=== PATIENT | male | born 1970 | race Caucasian/White ===

== ENCOUNTER 2019-01-06 14:55 | Outpatient (CLI) | payer BC ==
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
== END 2019-01-06 14:56 | disposition home or self-care (01) ==
LOC: BICRAD 14:55
DX: M25.562 Pain in left knee (principal); S81.002A Unspecified open wound, left knee, initial encounter; Z98.890 Other specified postprocedural states

== ENCOUNTER 2021-11-22 08:57 | Outpatient (CLI) | payer BC ==
[2021-11-22] MEDS ORDERED: Iopamidol 370 76% 100 ML VIAL ONE (13:51)
== END 2021-11-22 08:58 | disposition home or self-care (01) ==
LOC: CT 08:57
PROVIDERS: ATTEND Thoracic Surgery (Cardiothoracic Vascular Surgery)
DX: S75.022A Major laceration of femoral artery, left leg, initial encounter (principal)
CPT/HCPCS: 75635; Q9967

== ENCOUNTER 2021-12-05 16:30 | Outpatient (CLI) | payer BC ==
[2021-12-05 18:17] LABS: Hemoglobin 16.1 g/dL (13.5-17.5); Mean Corpuscular HGB CONC 35.5 g/dL (32.0-36.0); Mean Corpuscular Hemoglobin 34.4 pg (27.0-33.0); Mean Platelet Volume 9.6 fl (7.4-10.4); Platelet Count 211 10x3/uL (150-450); RBC Distribution Width 12.1 % (11.5-14.5); Red Blood Cell (RBC) Count 4.68 10x6/uL (4.32-5.72); White Blood Cell (WBC) Count 5.8 10x3/uL (3.5-10.5)
[2021-12-05 18:45] LABS: Anion Gap 15 mmol/L (10-20); BUN (Urea Nitrogen) 13 mg/dL (8.4-25.7); Calc. Creatinine Clearance 0 mL/min (70-130); Calcium 9.9 mg/dL (7.8-10.44); Carbon Dioxide 25 mmol/L (22-29); Chloride 103 mmol/L (98-107); Estimated GFR 106; Glucose 91 mg/dL (70-105); Potassium 4.2 mmol/L (3.5-5.1); Sodium 139 mmol/L (136-145)
== END 2021-12-05 16:31 | disposition home or self-care (01) ==
LOC: LABBT 16:30
PROVIDERS: ATTEND Thoracic Surgery (Cardiothoracic Vascular Surgery)
DX: Z01.818 Encounter for other preprocedural examination (principal); S80.852A Superficial foreign body, left lower leg, initial encounter; N28.9 Disorder of kidney and ureter, unspecified
CPT/HCPCS: 80048; 85027; 93005; 93010

== ENCOUNTER 2021-12-06 07:01 | Day surgery (SDC) | payer BC ==
[2021-12-05 14:33] VITALS: BMI 23.9
[2021-12-06] MEDS ORDERED: Heparin 5,000 UNITS/ML VIAL ONE (07:12)
[2021-12-06] MEDS ORDERED: Protamine Sulfate 50 MG/5 ML VIAL ONE (07:12)
[2021-12-06] MEDS ORDERED: Sodium Chloride 0.9% 100 ML ONE (08:40)
[2021-12-06] MEDS ORDERED: CEFAZOLIN 2 GM VIAL ONE (08:40)
[2021-12-06] MEDS ORDERED: HYDROmorphone 0.5 MG/0.5 ML SYRINGE ONE (09:01)
[2021-12-06] MEDS ORDERED: fentaNYL Citrate/PF 100 MCG/2 ML SYRINGE ONE (09:01)
[2021-12-06] MEDS ORDERED: Dexamethasone 20 MG/5 ML VIAL ONE (09:51)
[2021-12-06] MEDS ORDERED: Lidocaine 1% PF 5 ML VIAL ONE (09:51)
[2021-12-06] MEDS ORDERED: Rocuronium Bromide 10 MG/ML (10ML VIAL) ONE (09:51)
[2021-12-06] MEDS ORDERED: Ketorolac Tromethamine 30 MG/ML VIAL ONE (09:51)
[2021-12-06] MEDS ORDERED: PROPOFOL 200 MG/20 ML VIAL ONE (09:51)
[2021-12-06] MEDS ORDERED: Ondansetron PF 4 MG/2 ML Vial ONE (09:51)
== END 2021-12-06 12:25 | disposition home or self-care (01) ==
LOC: SDC 07:01
PROVIDERS: ATTEND Thoracic Surgery (Cardiothoracic Vascular Surgery)
PROC: 0JCM0ZZ Extirpation of Matter from Left Upper Leg Subcutaneous Tissue and Fascia, Open Approach (ICD-10-PCS; principal; 2021-12-06)
DX: S80.252A Superficial foreign body, left knee, initial encounter (principal); I10 Essential (primary) hypertension; E78.5 Hyperlipidemia, unspecified; F17.210 Nicotine dependence, cigarettes, uncomplicated; Z79.82 Long term (current) use of aspirin; Z79.899 Other long term (current) drug therapy; Z88.1 Allergy status to other antibiotic agents; Z88.8 Allergy status to other drugs, medicaments and biological substances; Z95.820 Peripheral vascular angioplasty status with implants and grafts; W32.0XXA Accidental handgun discharge, initial encounter
CPT/HCPCS: C1776; J0690; J1100; J1170; J1644; J1885; J2405; J2704; J2720; J3490

== ENCOUNTER 2022-04-23 11:47 | Outpatient (CLI) | payer BC ==
[2022-04-23 14:03] LABS: Anion Gap 16 mmol/L (10-20); BUN (Urea Nitrogen) 8 mg/dL (8.4-25.7); Calc. Creatinine Clearance 0 mL/min (70-130); Calcium 10.3 mg/dL (7.8-10.44); Carbon Dioxide 23 mmol/L (22-29); Chloride 103 mmol/L (98-107); Estimated GFR 107; Glucose 104 mg/dL (70-105); Potassium 4.5 mmol/L (3.5-5.1); Sodium 137 mmol/L (136-145)
== END 2022-04-23 11:48 | disposition home or self-care (01) ==
LOC: LABBT 11:47
PROVIDERS: ATTEND Orthopaedic Surgery Hand Surgery
DX: Z01.818 Encounter for other preprocedural examination (principal); M79.5 Residual foreign body in soft tissue; M77.9 Enthesopathy, unspecified
CPT/HCPCS: 80048; 93005; 93010

== ENCOUNTER 2022-08-08 07:39 | Outpatient (CLI) | payer BC ==
[2022-08-08] MEDS ORDERED: Iopamidol 370 76% 100 ML VIAL ONE (14:10)
== END 2022-08-08 07:40 | disposition home or self-care (01) ==
LOC: BICCT 07:39
PROVIDERS: ATTEND Thoracic Surgery (Cardiothoracic Vascular Surgery)
DX: S75.022A Major laceration of femoral artery, left leg, initial encounter (principal); I77.1 Stricture of artery; I70.8 Atherosclerosis of other arteries
CPT/HCPCS: 75635; 82565; Q9967

== ENCOUNTER 2022-08-25 14:00 | Inpatient (IN) | payer BC ==
[2022-08-25 14:44] VITALS: BMI 24.3
[2022-08-26] MEDS ORDERED: Protamine Sulfate 50 MG/5 ML VIAL ONE (06:35)
[2022-08-26] MEDS ORDERED: Heparin 5,000 UNITS/ML VIAL ONE (06:35)
[2022-08-26] MEDS ORDERED: Midazolam HCl 2 mg/2 ml Vial ONE (06:45)
[2022-08-26] MEDS ORDERED: Fentanyl 250 MCG/5 ML VIAL ONE (06:45)
[2022-08-26] MEDS ORDERED: SUGAMMADEX SODIUM 200 MG/2 ML VIAL ONE (06:46)
[2022-08-26] MEDS ORDERED: Phenylephrine 10 MG/ML VIAL ONE (06:47)
[2022-08-26] MEDS ORDERED: Sodium Chloride 0.9% 100 ML ONE (07:13)
[2022-08-26] MEDS ORDERED: CEFAZOLIN 2 GM VIAL ONE (07:13)
[2022-08-26] MEDS ORDERED: HYDROmorphone 0.5 MG/0.5 ML SYRINGE ONE ×5 (07:16→15:31)
[2022-08-26] MEDS ORDERED: KETAMINE 100 MG/ML (5ML VIAL) ONE (07:16)
[2022-08-26] MEDS ORDERED: HYDROmorphone 2 MG/ML VIAL ONE (07:16)
[2022-08-26] MEDS ORDERED: Vecuronium 10 MG VIAL ONE (07:24)
[2022-08-26] MEDS ORDERED: PROPOFOL 200 MG/20 ML VIAL ONE (07:24)
[2022-08-26] MEDS ORDERED: ePHEDrine Sulfate 50 MG/10 ML VIAL ONE (07:24)
[2022-08-26] MEDS ORDERED: Rocuronium Bromide 10 MG/ML (10ML VIAL) ONE (07:24)
[2022-08-26] MEDS ORDERED: Ondansetron PF 4 MG/2 ML Vial ONE (07:24)
[2022-08-26] MEDS ORDERED: Dexamethasone 20 MG/5 ML VIAL ONE (07:24)
[2022-08-26] MEDS ORDERED: Ipratropium/Albuterol 3 ML NEB NEB PRN (11:55)
[2022-08-26] MEDS ORDERED: Acetaminophen 325 MG TAB PO PRN (11:55)
[2022-08-26] MEDS ORDERED: traMADol HCl 50 MG TAB PO PRN (11:55)
[2022-08-26] MEDS ORDERED: Ondansetron PF 4 MG/2 ML Vial IVP PRN (11:55)
[2022-08-26] MEDS ORDERED: Sodium Chloride 0.9% 1,000 ML IV SCH (12:00)
[2022-08-26] MEDS: Ketorolac Tromethamine 30 MG/ML VIAL IVP SCH ×3 (16:34→23:57)
[2022-08-26] MEDS: traMADol HCl 50 MG TAB PO PRN (20:25)
[2022-08-26] MEDS: Pregabalin 75 MG CAP PO SCH (20:26)
[2022-08-26] MEDS: Atorvastatin Calcium 10 MG TAB PO SCH (20:27)
[2022-08-26] MEDS: CEFAZOLIN 2 GM in Sodium Chloride 0.9% 100 ML IVPB SCH (20:27)
[2022-08-27] MEDS: CEFAZOLIN 2 GM in Sodium Chloride 0.9% 100 ML IVPB SCH ×2 (03:46→11:30)
[2022-08-27] MEDS: Ketorolac Tromethamine 30 MG/ML VIAL IVP SCH ×3 (05:35→17:55)
[2022-08-27] MEDS ORDERED: NIFEdipine XL 60 MG TAB PO SCH (09:00)
[2022-08-27] MEDS: Bupropion 150 MG SR TAB PO SCH (09:07)
[2022-08-27] MEDS: Polyethylene Glycol 3350 17 GM Packet PO SCH (09:08)
[2022-08-27] MEDS: Clopidogrel Bisulfate 75 MG TAB PO SCH (09:08)
[2022-08-27] MEDS: Aspirin Chewable 81 MG TAB PO SCH (09:08)
[2022-08-27] MEDS: Losartan 25 MG TAB PO SCH (09:08)
[2022-08-27] MEDS: traMADol HCl 50 MG TAB PO PRN (21:48)
[2022-08-27] MEDS: Atorvastatin Calcium 10 MG TAB PO SCH (21:48)
[2022-08-27] MEDS: Pregabalin 75 MG CAP PO SCH (21:48)
[2022-08-28] MEDS: Ketorolac Tromethamine 30 MG/ML VIAL IVP SCH ×3 (00:16→10:55)
[2022-08-28] MEDS: Bupropion 150 MG SR TAB PO SCH (08:24)
[2022-08-28] MEDS: Clopidogrel Bisulfate 75 MG TAB PO SCH (08:25)
[2022-08-28] MEDS: Losartan 25 MG TAB PO SCH (08:25)
[2022-08-28] MEDS: Aspirin Chewable 81 MG TAB PO SCH (08:25)
[2022-08-28] MEDS: Polyethylene Glycol 3350 17 GM Packet PO SCH (08:25)
[2022-08-28 08:39] VITALS: BP 142/83; TEMP 98.7
== END 2022-08-28 12:15 | disposition home or self-care (01) | DRG 254 ==
LOC: SURG A 08-26 06:04
PROVIDERS: ADMIT Thoracic Surgery (Cardiothoracic Vascular Surgery); ATTEND Thoracic Surgery (Cardiothoracic Vascular Surgery)
PROC: 041L09L Bypass Left Femoral Artery to Popliteal Artery with Autologous Venous Tissue, Open Approach (ICD-10-PCS; principal; 2022-08-26)
PROC: 041 Lower Arteries, Bypass (ICD-10-PCS; 2022-08-26)
PROC: 06BQ0ZZ Excision of Left Saphenous Vein, Open Approach (ICD-10-PCS; 2022-08-26)
PROC: 06BP0ZZ Excision of Right Saphenous Vein, Open Approach (ICD-10-PCS; 2022-08-26)
DX: I70.222 Atherosclerosis of native arteries of extremities with rest pain, left leg (principal); F17.210 Nicotine dependence, cigarettes, uncomplicated; F41.9 Anxiety disorder, unspecified; I10 Essential (primary) hypertension; E78.5 Hyperlipidemia, unspecified; E55.9 Vitamin D deficiency, unspecified; Z71.6 Tobacco abuse counseling; Z79.899 Other long term (current) drug therapy; Z79.82 Long term (current) use of aspirin; Z88.1 Allergy status to other antibiotic agents; Z88.8 Allergy status to other drugs, medicaments and biological substances
CPT/HCPCS: 80048; 85027; 86850; 86900; 86901; 93005; 93010; C1776; J1100; J1170; J1644; J1885; J2250; J2370; J2405; J2704; J2720; J3010; J3490

== ENCOUNTER 2022-08-25 14:03 | Outpatient (CLI) | payer BC ==
[2022-08-25 14:43] LABS: Hemoglobin 16.2 g/dL (13.5-17.5); Mean Corpuscular HGB CONC 35.1 g/dL (32.0-36.0); Mean Corpuscular Hemoglobin 33.2 pg (27.0-33.0); Mean Corpuscular Volume 94.7 fl (81.2-95.1); Mean Platelet Volume 8.6 fl (7.4-10.4); Platelet Count 229 10x3/uL (150-450); RBC Distribution Width 12.5 % (11.5-14.5); Red Blood Cell (RBC) Count 4.88 10x6/uL (4.32-5.72); White Blood Cell (WBC) Count 7.2 10x3/uL (3.5-10.5)
[2022-08-25 15:08] LABS: Anion Gap 16 mmol/L (10-20); BUN (Urea Nitrogen) 13 mg/dL (8.4-25.7); Calc. Creatinine Clearance 0 mL/min (70-130); Calcium 9.9 mg/dL (7.8-10.44); Carbon Dioxide 23 mmol/L (22-29); Chloride 102 mmol/L (98-107); Estimated GFR 83; Glucose 132 mg/dL (70-105); Potassium 4.1 mmol/L (3.5-5.1); Sodium 137 mmol/L (136-145)
== END 2022-08-25 14:04 | disposition home or self-care (01) ==
LOC: LABBT 14:03
PROVIDERS: ATTEND Thoracic Surgery (Cardiothoracic Vascular Surgery)
DX: Z01.818 Encounter for other preprocedural examination (principal); I73.9 Peripheral vascular disease, unspecified
CPT/HCPCS: 80048; 85027; 86850; 86900; 86901; 93005; 93010

== ENCOUNTER 2024-06-17 06:27 | Day surgery (SDC) | payer OTHER ==
[2024-06-17] MEDS ORDERED: Midazolam HCl 2 mg/2 ml Vial ONE (07:31)
[2024-06-17] MEDS ORDERED: Heparin 10,000 UNITS/ 10 ML VIAL ONE (07:31)
[2024-06-17] MEDS ORDERED: Iopamidol 370 76% 100 ML VIAL ONE (14:24)
== END 2024-06-17 11:10 | disposition home or self-care (01) ==
LOC: SDC 06:27
PROVIDERS: ATTEND Thoracic Surgery (Cardiothoracic Vascular Surgery)
PROC: B40GYZZ Plain Radiography of Left Lower Extremity Arteries using Other Contrast (ICD-10-PCS; principal; 2024-06-17)
PROC: B420YZZ Computerized Tomography (CT Scan) of Abdominal Aorta using Other Contrast (ICD-10-PCS; principal; 2024-06-17)
DX: I73.9 Peripheral vascular disease, unspecified (principal); T82.858A Stenosis of other vascular prosthetic devices, implants and grafts, initial encounter; Z79.899 Other long term (current) drug therapy; Z98.890 Other specified postprocedural states; F17.200 Nicotine dependence, unspecified, uncomplicated; Z88.1 Allergy status to other antibiotic agents; Z91.030 Bee allergy status
CPT/HCPCS: 37224; 37246; 75625; 75710; 75774; 99152; 99153; C1725; C1760; C1769; C1887; J1644; J2250; Q9967